=== PATIENT | male | born 1975 | race African-American/Black ===

== ENCOUNTER 2017-03-19 11:16 | Inpatient (IN) | payer OTHER ==
[2017-03-19 11:40] VITALS: BMI 23.0
--- NOTE | 2017-03-19 12:03 | HP ---
Admission [facility] Chief Complaint: I AM HERE FOR REHAB FROM METHAMPHETAMINE Allergies/Adverse Reactions: Allergies Allergy/AdvReac Type Severity Reaction Status Date / Time Penicillins Allergy Severe Difficulty Verified 03/19/17 11:40 Breathing History of Present Illness: THIS 41 YEARS OLD MÉNDEZ WITH METHAMPHETAMINE DEPENDENCE,[facility],LAST TREATMENT 2012 [facility] HIV SINCE 1994 ON MED DEPRESSION LONGEST PERIOD OF SOBRIETY 7 YEARS - Ebola screening Have you traveled outside of the country in the last 21 days: No (N) Have you had contact with anyone from an Ebola affected area: No Have you been sick,other than usual withdrawal symptoms: No Do you have a fever: No - Review of Systems Constitutional: Loss of Appetite, Malaise, Unintentional Wgt. Loss EENT: reports: No Symptoms Reported Respiratory: reports: No Symptoms reported Cardiac: reports: No Symptoms Reported GI: reports: No Symptoms Reported : reports: No Symptoms Reported Musculoskeletal: reports: Muscle Pain Neuro: reports: No Symptoms reported Endocrine: reports: No Symptoms Reported Hematology: reports: No Symptoms Reported, Other (HIV) Psychiatric: reports: No Sypmtoms Reported, Judgement Intact, Mood/Affect Appropiate, Orientated x3, Depressed Patient History - Patient Medical History Hx Anemia: No Hx Asthma: No Hx Chronic Obstructive Pulmonary Disease (COPD): No Hx Cancer: No Hx Cardiac Disorders: No Hx Congestive Heart Failure: No Hx Hypertension: No Hx Hypercholesterolemia: No Hx Pacemaker: No HX Cerebrovascular Accident: No Hx Seizures: No Hx Dementia: No Hx Diabetes: No Hx Gastrointestinal Disorders: No Hx Liver Disease: No Hx Genitourinary Disorders: No Hx Sexually Transmitted Disorders: No Hx Renal Disease (ESRD): No Hx Thyroid Disease: No Hx Human Immunodeficiency Virus (HIV): Yes (SINCE 1994 ON ATRIPLA) Hx Hepatitis C: No Hx Depression: Yes Hx Suicide Attempt: Yes (OVERDOSE) Hx Bipolar Disorder: No Hx Schizophrenia: No Other Medical History: NO SUICIDAL,NO HOMICIDAL - Patient Surgical History Past Surgical History: No - PPD History Documented Results: Negative w/o proof (BLOOD TEST QUANTIFERON TB GOLD ON NEGATIVE) PPD to be Administered?: No - Smoking Cessation Smoking history: Current every day smoker Have you smoked in the past 12 months: Yes Aproximately how many cigarettes per day: 6 Cigars Per Day: 0 Hx Chewing Tobacco Use: No Initiated information on smoking cessation: Yes 'Breaking Loose' booklet given: 03/19/17 - Substance & Tx. History Hx Alcohol Use: No Hx Substance Use: Yes Hx Substance Use Treatment: Yes ([facility] 2011) - Substances Abused Crystal meth Route: Smoking Frequency: 1-2 times per week Amount used: 1 bag Age of first use: 39 Date of Last Use: 03/12/17 Family Disease History - Family Disease History Family History: Denies Admission Physical Exam [facility] - Vital Signs Vital Signs: Vital Signs - 24 hr 03/19/17 11:31 Temperature 95.7 F L Pulse Rate 87 Respiratory 18 Rate Blood Pressure 111/72 - Physical General Appearance: Yes: Within Normal Limits HEENTM: Yes: Normal ENT Inspection, DULCE, Pharynx Normal Respiratory: Yes: Lungs Clear, Normal Breath Sounds, No Respiratory Distress Neck: Yes: Within Normal Limits, Supple, Trachea in good position Breast: Yes: Within Normal Limits Cardiology: Yes: Within Normal Limits, Regular Rhythm, Regular Rate, S1, S2 Abdominal: Yes: Within Normal Limits, Normal Bowel Sounds, Non Tender, Flat, Soft Genitourinary: Yes: Within Normal Limits Back: Yes: Within Normal Limits Musculoskeletal: Yes: Within Normal Limits Extremities: Yes: Within Normal Limits Neurological: Yes: community outreach manager II-XII NML intact, Fully Oriented, Alert, Motor Strength 5/5 Integumentary: Yes: Within Normal Limits Lymphatic: Yes: Within Normal Limits - Diagnostic (1) Methamphetamine dependence Current Visit: Yes Status: Acute (2) HIV (human immunodeficiency virus infection) Current Visit: Yes Status: Acute (3) Depression Current Visit: Yes Status: Acute (4) Weight loss Current Visit: Yes Status: Acute (5) Nicotine dependence Current Visit: Yes Status: Acute Cleared for Admission [facility] - Detox or Rehab Claeared for Rehab Admission: Yes [facility] Breath Alcohol Content Breath Alcohol Content: 0 Urine Drug Screen - Results Drug Screen Negative: No Urine Drug Screen Results: AMP-Amphetamines, MET-Methamphetamine Inpatient Rehab Admission - Initial Determination Are CD services needed?: Yes Free of communicable disease: Yes Not in need of hospitalization: Yes - Rehab Admission Criteria Previous failed treatment: Yes Poor recovery environment: Yes Comorbidities: Yes Patient is meeting Inpatient Rehab admission criteria:: Yes
[2017-03-19] MEDS ORDERED: MAGNESIUM CITRATE 300 ML BOTTLE PO PRN (12:18)
[2017-03-19] MEDS ORDERED: MAG HYDROX/AL HYDROX/SIMETH 30 ML UNIT-DOSE CUP PO PRN (12:18)
[2017-03-19] MEDS ORDERED: LOPERAMIDE HCL 2 MG CAPSULE PO PRN (12:18)
[2017-03-19] MEDS ORDERED: guaiFENesin/D-METHORPHAN HB 10 ML UNIT-DOSE CUPS PO PRN (12:18)
[2017-03-19] MEDS ORDERED: MENTHOL/PHENOL 1 EACH UD MM PRN (12:18)
[2017-03-19] MEDS ORDERED: P-EPHED 60MG/TRIPROLIDI 2.5MG TABLET PO PRN (12:18)
[2017-03-19] MEDS ORDERED: IBUPROFEN 400 MG TABLET (FP) PO PRN (12:18)
[2017-03-19] MEDS ORDERED: ACETAMINOPHEN 325 MG TABLET (FP) PO PRN (12:18)
[2017-03-19] MEDS ORDERED: MAGNESIUM HYDROX 2400MG/30ML ORAL SUSPENSION 30 ML CUP PO PRN (12:18)
[2017-03-19] MEDS ORDERED: hydrOXYzine PAMOATE 25 MG CAPSULE (FP) PO PRN (12:18)
[2017-03-19 13:22] LABS: MCH 29.2 pg (25.7-33.7); MCHC 32.3 g/dl (32.0-35.9); MEAN CELL VOLUME 90.4 fl (80-96); MEAN PLT VOLUME 7.9 fl (7.5-11.1); PLATELET COUNT 257 K/MM3 (134-434); RDW 12.6 % (11.9-15.9)
[2017-03-19 13:54] LABS: ALBUMIN 3.7 g/dl (3.4-5.0); ALK PHOS 121 U/L (45-117); ANION GAP 5 (8-16); BILIRUBIN,TOTAL 0.3 mg/dL (0.2-1.0); CALCIUM 8.7 mg/dL (8.5-10.1); CO2 28 mmol/L (21-32); GLUCOSE,RANDOM 99 mg/dL (74-106); SGOT/AST 23 U/L (15-37); SGPT/ALT 43 U/L (12-78); TOT PROT 7.3 g/dl (6.4-8.2)
[2017-03-19] MEDS: VENLAFAXINE HCL 37.5 MG E.R. CAPSULE (FP) PO SCH (15:25)
[2017-03-19 15:54] LABS: SICKLE CELL SCREEN NEGATIVE (NEGATIVE)
[2017-03-19 18:43] LABS: URINE APPEARANCE SLCLOUDY; URINE BILIRUBIN NEGATIVE (NEGATIVE); URINE BLOOD NEGATIVE (NEGATIVE); URINE COLOR DKYELLOW; URINE GLUCOSE (UA) NEGATIVE (NEGATIVE); URINE KETONE NEGATIVE (NEGATIVE); URINE NITRITE NEGATIVE (NEGATIVE); URINE PROTEIN NEGATIVE (NEGATIVE)
[2017-03-19 21:24] LABS: URINE LEUK ESTERASE Negative (NEGATIVE)
[2017-03-19] MEDS: PATIENT'S OWN MEDICATION (NON-FORMULARY) (Efavirenz/Emtricitab/Tenofovir 1 TAB) PO SCH (21:49)
[2017-03-19] MEDS: THIAMINE HCL 100 MG TABLET (FP) PO SCH (21:49)
[2017-03-20] MEDS: VENLAFAXINE HCL 37.5 MG E.R. CAPSULE (FP) PO SCH (10:19)
[2017-03-20] MEDS: PRENATAL VITAMINS W/ FOLIC ACID TABLET (FP) PO SCH (10:19)
[2017-03-20] MEDS: PATIENT'S OWN MEDICATION (NON-FORMULARY) (Efavirenz/Emtricitab/Tenofovir 1 TAB) PO SCH (21:35)
[2017-03-20] MEDS: THIAMINE HCL 100 MG TABLET (FP) PO SCH (21:35)
--- NOTE | 2017-03-20 22:36 | EKG ---
Test Reason : Blood Pressure : / mmHG Vent. Rate : 074 BPM Atrial Rate : 074 BPM P-R Int : 124 ms QRS Dur : 096 ms QT Int : 396 ms P-R-T Axes : 050 063 038 degrees QTc Int : 439 ms NORMAL SINUS RHYTHM NORMAL ECG NO PREVIOUS ECGS AVAILABLE Confirmed by GLENN WOLFF MD ([id number]) on 03/20/2017 10:36:18 PM Referred By: Confirmed By:GLENN WOLFF MD
[2017-03-21] MEDS: PRENATAL VITAMINS W/ FOLIC ACID TABLET (FP) PO SCH (10:18)
[2017-03-21] MEDS: VENLAFAXINE HCL 37.5 MG E.R. CAPSULE (FP) PO SCH (10:19)
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
[2017-03-21] MEDS: THIAMINE HCL 100 MG TABLET (FP) PO SCH (21:59)
[2017-03-21] MEDS: PATIENT'S OWN MEDICATION (NON-FORMULARY) (Efavirenz/Emtricitab/Tenofovir 1 TAB) PO SCH (22:00)
[2017-03-22] MEDS: VENLAFAXINE HCL 37.5 MG E.R. CAPSULE (FP) PO SCH (10:48)
[2017-03-22] MEDS: PRENATAL VITAMINS W/ FOLIC ACID TABLET (FP) PO SCH (10:48)
[2017-03-22] MEDS: THIAMINE HCL 100 MG TABLET (FP) PO SCH (21:41)
[2017-03-22] MEDS: PATIENT'S OWN MEDICATION (NON-FORMULARY) (Efavirenz/Emtricitab/Tenofovir 1 TAB) PO SCH (21:41)
[2017-03-23] MEDS: VENLAFAXINE HCL 37.5 MG E.R. CAPSULE (FP) PO SCH (10:53)
[2017-03-23] MEDS: PRENATAL VITAMINS W/ FOLIC ACID TABLET (FP) PO SCH (10:53)
[2017-03-23] MEDS: THIAMINE HCL 100 MG TABLET (FP) PO SCH (21:51)
[2017-03-23] MEDS: PATIENT'S OWN MEDICATION (NON-FORMULARY) (Efavirenz/Emtricitab/Tenofovir 1 TAB) PO SCH (21:51)
[2017-03-24] MEDS: VENLAFAXINE HCL 37.5 MG E.R. CAPSULE (FP) PO SCH (10:31)
[2017-03-24] MEDS: PRENATAL VITAMINS W/ FOLIC ACID TABLET (FP) PO SCH (10:31)
[2017-03-24] MEDS: THIAMINE HCL 100 MG TABLET (FP) PO SCH (22:01)
[2017-03-24] MEDS: PATIENT'S OWN MEDICATION (NON-FORMULARY) (Efavirenz/Emtricitab/Tenofovir 1 TAB) PO SCH (22:01)
[2017-03-25] MEDS: VENLAFAXINE HCL 37.5 MG E.R. CAPSULE (FP) PO SCH (10:26)
[2017-03-25] MEDS: PRENATAL VITAMINS W/ FOLIC ACID TABLET (FP) PO SCH (10:26)
[2017-03-25] MEDS: NICOTINE POLACRILEX 2 MG GUM BUC PRN (14:06)
[2017-03-25] MEDS: THIAMINE HCL 100 MG TABLET (FP) PO SCH (21:51)
[2017-03-25] MEDS: PATIENT'S OWN MEDICATION (NON-FORMULARY) (Efavirenz/Emtricitab/Tenofovir 1 TAB) PO SCH (21:51)
[2017-03-26] MEDS: PRENATAL VITAMINS W/ FOLIC ACID TABLET (FP) PO SCH (10:25)
[2017-03-26] MEDS: VENLAFAXINE HCL 37.5 MG E.R. CAPSULE (FP) PO SCH (10:25)
[2017-03-26] MEDS: PATIENT'S OWN MEDICATION (NON-FORMULARY) (Efavirenz/Emtricitab/Tenofovir 1 TAB) PO SCH (21:51)
[2017-03-26] MEDS: THIAMINE HCL 100 MG TABLET (FP) PO SCH (21:51)
[2017-03-27] MEDS: VENLAFAXINE HCL 37.5 MG E.R. CAPSULE (FP) PO SCH (10:42)
[2017-03-27] MEDS: PRENATAL VITAMINS W/ FOLIC ACID TABLET (FP) PO SCH (10:43)
[2017-03-27] MEDS: NICOTINE POLACRILEX 2 MG GUM BUC PRN ×2 (18:05→23:43)
[2017-03-27] MEDS: PATIENT'S OWN MEDICATION (NON-FORMULARY) (Efavirenz/Emtricitab/Tenofovir 1 TAB) PO SCH (21:47)
[2017-03-27] MEDS: THIAMINE HCL 100 MG TABLET (FP) PO SCH (21:47)
[2017-03-28] MEDS: NICOTINE POLACRILEX 2 MG GUM BUC PRN (08:43)
[2017-03-28] MEDS: VENLAFAXINE HCL 37.5 MG E.R. CAPSULE (FP) PO SCH (10:18)
[2017-03-28] MEDS: PRENATAL VITAMINS W/ FOLIC ACID TABLET (FP) PO SCH (10:18)
[2017-03-28] MEDS: THIAMINE HCL 100 MG TABLET (FP) PO SCH (21:43)
[2017-03-28] MEDS: PATIENT'S OWN MEDICATION (NON-FORMULARY) (Efavirenz/Emtricitab/Tenofovir 1 TAB) PO SCH (21:43)
[2017-03-29] MEDS: VENLAFAXINE HCL 37.5 MG E.R. CAPSULE (FP) PO SCH (10:32)
[2017-03-29] MEDS: PRENATAL VITAMINS W/ FOLIC ACID TABLET (FP) PO SCH (10:32)
[2017-03-29] MEDS: PATIENT'S OWN MEDICATION (NON-FORMULARY) (Efavirenz/Emtricitab/Tenofovir 1 TAB) PO SCH (21:46)
[2017-03-29] MEDS: THIAMINE HCL 100 MG TABLET (FP) PO SCH (21:46)
[2017-03-30] MEDS: VENLAFAXINE HCL 37.5 MG E.R. CAPSULE (FP) PO SCH (10:38)
[2017-03-30] MEDS: PRENATAL VITAMINS W/ FOLIC ACID TABLET (FP) PO SCH (10:38)
[2017-03-30] MEDS: NICOTINE POLACRILEX 2 MG GUM BUC PRN ×2 (15:41→22:01)
[2017-03-30] MEDS: THIAMINE HCL 100 MG TABLET (FP) PO SCH (21:47)
[2017-03-30] MEDS: PATIENT'S OWN MEDICATION (NON-FORMULARY) (Efavirenz/Emtricitab/Tenofovir 1 TAB) PO SCH (21:47)
[2017-03-31 07:24] VITALS: PULSE 80
[2017-03-31] MEDS: PRENATAL VITAMINS W/ FOLIC ACID TABLET (FP) PO SCH (10:31)
[2017-03-31] MEDS: VENLAFAXINE HCL 37.5 MG E.R. CAPSULE (FP) PO SCH (10:32)
[2017-03-31] MEDS: NICOTINE POLACRILEX 2 MG GUM BUC PRN (10:32)
[2017-03-31] MEDS: THIAMINE HCL 100 MG TABLET (FP) PO SCH (21:46)
[2017-03-31] MEDS: PATIENT'S OWN MEDICATION (NON-FORMULARY) (Efavirenz/Emtricitab/Tenofovir 1 TAB) PO SCH (21:46)
[2017-04-01] MEDS: NICOTINE POLACRILEX 2 MG GUM BUC PRN (06:41)
[2017-04-01 06:46] VITALS: BP 140/83; TEMP 97.6
--- NOTE | 2017-04-01 09:29 | PN ---
Psychiatric Progress Note Vital Signs: Vital Signs Period Temp Pulse Resp BP Sys/Decker Pulse Ox Last 24 Hr 97.6 F 80 16-16 140/83 Date of Session: 04/01/17 Chief Complaint:: discharge visit HPI: Patient has addressed methamphetamine, nicotine dependence comorbid MDD. ROS: HIV+ medically manged. Current Medications: Active Medications Generic Name Dose Route Start Last Admin Trade Name Freq PRN Reason Stop Dose Admin Acetaminophen 650 mg 03/19/17 12:18 Tylenol - PO Q4H PRN PAIN Al Hydroxide/Mg Hydroxide 30 ml 03/19/17 12:18 Mylanta Oral Suspension - PO Q6H PRN DYSPEPSIA Eucalyptus/Menthol/Phenol/Sorbitol 1 each 03/19/17 12:18 Cepastat Lozenge - MM Q4H PRN SORE THROAT Guaifenesin 10 ml 03/19/17 12:18 Robitussin Dm - PO Q6H PRN COUGH Hydroxyzine Pamoate 25 mg 03/19/17 12:18 Vistaril - PO Q4H PRN AGITATION Ibuprofen 400 mg 03/19/17 12:18 03/29/17 14:11 Motrin - PO 400 mg Q6H PRN Administration SEVERE PAIN Loperamide HCl 4 mg 03/19/17 12:18 Imodium - PO Q6H PRN DIARRHEA Magnesium Citrate 300 ml 03/19/17 12:18 Citroma - PO Q48H PRN CONSTIPATION Magnesium Hydroxide 30 ml 03/19/17 12:18 Milk Of Magnesia - PO DAILY PRN CONSTIPATION Nicotine Polacrilex 2 mg 03/19/17 12:18 04/01/17 06:41 Nicorette Gum - BUC 2 mg Q2H PRN Administration NICOTINE REPLACEMENT RX Non-Formulary Medication 1 tab 03/19/17 22:00 03/31/17 21:46 Efavirenz/Emtricitab/Tenofovir PO 1 tab HS LOGAN Administration Multivit/Folic Acid/Iron 1 tab 03/20/17 10:00 03/31/17 10:31 Vitamins (Sjr) - PO 1 tab DAILY LOGAN Administration Pseudoephedrine/Triprolidine 1 combo 03/19/17 12:18 Actifed - PO TID PRN NASAL CONGESTION Thiamine HCl 100 mg 03/19/17 22:00 03/31/17 21:46 Vitamin B1 - PO 100 mg HS LOGAN Administration Venlafaxine HCl 37.5 mg 03/19/17 14:51 03/31/17 10:32 Effexor Xr - PO 37.5 mg DAILY LOGAN Administration Current Side Effect: No Lab tests ordered: No Lab tests reviewed: Yes Provider note:: Patient has completed today his treatment and met his goals, will continue to address his issues at [facility] outpatient treatment program. Patient verbalized understanding of the negative conseqences of his addiction and motivated to continue maintain abstinence, patient continues to finding that effexor is effective, he feels hopeful and less anxious, scripts for 30 days provided, patient is stable for discharge today. Total face to face time:: 25 Mental Status Exam - Mental Status Exam Alert and Oriented to: Time, Place, Person Cognitive Function: Good Patient Appearance: Well Groomed Mood: Hopeful Patient Behavior: Appropriate, Cooperative Speech Pattern: Clear, Appropriate Voice Loudness: Normal Thought Process: Intact, Goal Oriented Thought Disorder: Not Present Hallucinations: Denies Suicidal Ideation: Denies Homicidal Ideation: Denies Insight/Judgement: Fair Sleep: Fair Appetite: Fair Muscle strength/Tone: Normal Gait/Station: Normal Psychiatric Treatment Plan - Problem List (1) MDD (major depressive disorder) Current Visit: Yes (2) HIV (human immunodeficiency virus infection) Current Visit: Yes (3) Methamphetamine dependence Current Visit: Yes (4) Nicotine dependence Current Visit: Yes
[2017-04-01] MEDS: PRENATAL VITAMINS W/ FOLIC ACID TABLET (FP) PO SCH (10:20)
[2017-04-01] MEDS: VENLAFAXINE HCL 37.5 MG E.R. CAPSULE (FP) PO SCH (10:20)
== END 2017-04-01 10:55 | disposition home or self-care (01) | DRG 772 ==
LOC: YASAS 11:16 → Y5N 12:35
PROVIDERS: ADMIT Psychiatry & Neurology Psychiatry; ATTEND Psychiatry & Neurology Psychiatry
PROC: HZ42ZZZ Group Counseling for Substance Abuse Treatment, Cognitive-Behavioral (ICD-10-PCS; principal; 2017-03-19)
DX: F15.20 Other stimulant dependence, uncomplicated (principal); F17.210 Nicotine dependence, cigarettes, uncomplicated; F33.9 Major depressive disorder, recurrent, unspecified; Z21 Asymptomatic human immunodeficiency virus [HIV] infection status; R63.4 Abnormal weight loss; Z68.23 Body mass index [BMI] 23.0-23.9, adult; Z91.5 Personal history of self-harm
CPT/HCPCS: 36415; 80053; 81003; 85027; 85660; 86593; 93005; 93010